=== PATIENT | female | born 1990 | race Caucasian/White ===

== ENCOUNTER 2016-12-13 14:37 | Emergency (ER) | payer OTHER ==
--- NOTE | ~2016-12-13 | US106 ---
[facility] A Service of [facility] & [facility] RADIOLOGY TEXT RESULTS PATIENT: SAMRA BENDER LOCATION: [place] : [birth year] UNIT #: [id number] AGE: [address]: Deonna Marley MD SEX: F ORDER DR: [id number] [facility] [address]. [place], [place] [address] [id number] E MR#: [id number] Acc #: [id number] NAME: SAMRA BENDER : 1990 SEX: F STUDY DATE/TIME: 12/13/2016 15:16 UNIT: [place] ROOM: STUDY DESCRIPTION: US Preg Uterus Transvaginal Attending Physician: Deonna Marley M.D. Ordering Physician: Deonna Marley M.D. Primary Care Physician: No Primary Care Physician MEDICAL IMAGING REPORT This report is preliminary unless electronic signature is present EXAM Pelvic sonogram HISTORY 26-year-old female left lower quadrant pain x1 day, positive . FINDINGS Real-time examination was performed utilizing endovaginal scanning. Examination demonstrates single intrauterine with crown rump length of 2.8 cm corresponding to a 9-ovlg-5-day gestation. Normal-appearing yolk sac. There is chorioamniotic separation which is a normal finding at this stage of . Average gestational age by ultrasound corresponds to about 2-uaqk-0-day gestation with an EDC of 07/15/2017. This closely approximates the patient's EDC by LMP. heart rate was detected at 173 beats per minute. Imaging of the adnexa demonstrates normal ovaries. No free fluid or adnexal masses. There is a small amount of hypoechoic signal between the gestational sac and the uterine wall could represent a very small amount of subchorionic blood. This is estimated to involve well less than 25% of the sac. IMPRESSION 1. Single intrauterine at about 9 weeks 3 days corresponding to an EDC of 07/15/2017. Normal heart rate. 2. Minimal hypoechoic area between the chorion the uterine wall could represent a very small amount of subchorionic blood but involves well less than 25% of the gestational sac. This may be of no clinical significance. Further clinical followup would be recommended. Dictated by... Prabhjot Mcgill M.D. [facility] A Service of [facility] / [facility] RADIOLOGY TEXT RESULTS PATIENT: SAMRA BENDER LOCATION: [facility] : [birth year] UNIT #: [id number] AGE: [address]: Deonna Marley MD SEX: F ORDER DR: THIS IS AN ELECTRONICALLY VERIFIED REPORT Prabhjot Mcgill M.D. at 12/14/2016 12:27 PM JUAN PABLO/sonny TD: 12/13/2016 19:20 JOB #: [id number] MEDICAL IMAGING REPORT Page 1 of 1 COPY
[2016-12-13 14:56] LABS: URINE SOURCE CLEAN CATCH
[2016-12-13 15:18] LABS: BASOPHIL% 0.2 % (0-2.5); EOSINOPHIL# 0.1 X10e3 (0-0.7); EOSINOPHIL% 1.2 % (0.0-7.0); HEMATOCRIT 44.1 % (35.0-45.0); HEMOGLOBIN 14.6 gm/dL (12.0-16.0); LYMPHOCYTE# 1.8 X10e3 (1.0-3.5); LYMPHOCYTE% 26.7 % (17.0-45.0); MEAN CELL VOLUME 88.8 FL (83-96); MEAN CORPUSCULAR HEMOGLOBIN 29.5 PG (28-34); MEAN CORPUSCULAR HGB CONC 33.2 g/dL (30-36); MEAN PLATELET VOLUME 10.5 FL (6.5-11.5); MONOCYTE# 0.5 X10e3 (0-1.0); MONOCYTE% 7.4 % (3.0-12.0); NEUTROPHIL# 4.4 X10e3 (1.5-7.1); NEUTROPHIL% 64.5 % (40-75); PLATELET COUNT 207 X10e3 (140-420); RED BLOOD COUNT 4.96 X10e (3.90-5.30); RED CELL DISTRIBUTION WIDTH 13.6 % (11.0-15.5); WHITE BLOOD COUNT 6.9 X10e3 (4.0-10.5)
[2016-12-13 15:33] LABS: BUN/CREATININE RATIO 13.33; CALCIUM SERUM 9.4 mg/dL (8.4-10.2); CREATININE SERUM 0.9 mg/dL (0.6-1.4); GLOM FILT RATE Estimated 87.1 mL/min (>60); POTASSIUM 3.8 mmol/L (3.5-5.1)
[2016-12-13 15:42] LABS: URINE APPEARANCE CLOUDY; URINE BILIRUBIN NEG (NEG); URINE BLOOD NEG (NEG); URINE COLOR DK YELLOW; URINE GLUCOSE NEG (NEG); URINE KETONE TRACE (NEG); URINE LEUKOCYTE ESTERASE TRACE (NEG); URINE NITRATE POS (NEG); URINE PH 5.5 (5-8); URINE PROTEIN NEG (NEG); URINE SPECIFIC GRAVITY 1.036 (1.003-1.035)
[2016-12-13 16:06] LABS: DIFF IND NO
[2016-12-13 17:42] LABS: CULTURE INDICATED? YES; URINE BACTERIA AUWI 1+ (NEGATIVE)
== END 2016-12-13 17:47 | disposition home or self-care (01) ==
LOC: CED 14:37
PROVIDERS: Emergency Medicine
DX: O23.41 Unspecified infection of urinary tract in pregnancy, first trimester (principal); O99.331 Smoking (tobacco) complicating pregnancy, first trimester; F17.210 Nicotine dependence, cigarettes, uncomplicated; Z3A.09 9 weeks gestation of pregnancy; Z91.040 Latex allergy status; Z88.8 Allergy status to other drugs, medicaments and biological substances
CPT/HCPCS: 36415; 76817; 80048; 81003; 84702; 84703; 85025; 86900; 86901; 87086; 87088; 87186; 99284